=== PATIENT | male | born 1980 | race Caucasian/White ===

== ENCOUNTER 2017-10-20 08:59 | Emergency (ER) | payer OTHER ==
[2017-10-20 09:19] VITALS: BP 115/68
[2017-10-20] MEDS ORDERED: Lidocaine 2% VISCOUS* 15 ML UDC PO ONE (09:42)
--- NOTE | 2017-10-20 09:58 | UC ---
Jose Mark Angela, scribed for Meme Quintanilla MD on 10/20/17 at 0934 . Throat Pain/Nasal Los HPI - HPI Summary HPI Summary: This pt is a 36 y/o male presenting to [facility] c/o sore throat x3 days. Pt additionally c/o subjective a fever, chills, and nasal congestion. He has taken Tylenol PM, acetaminophen, oxycodone with some relief. Pt has gargled salt water , drank a lot of tea, used chloraseptic. He denies nausea, vomiting, rash, sinus pain, ear ache. Pt has had sick contacts with similar, not as sever He states he had a persistent cough a few weeks ago, that has now resolved after abx and MDI. He was on antibiotics for this and had albuterol treatment, with relief. no rashes. no cp. No sob. Has not gotten the flu vaccine NKDA. - History of Current Complaint Chief Complaint: UCRespiratory Stated Complaint: SORE THROAT Time Seen by Provider: 10/20/17 09:18 Hx Obtained From: Patient Onset/Duration: Lasting Days, Still Present Pain Intensity: 8 Pain Scale Used: 0-10 Numeric Cough: None - POS: nasal congestion. NEG: nausea, rash, sinus pain, ear ache. Associated Signs & Symptoms: Positive: Fever - subjective, Other - POS:. Negative: Vomiting, Rash - Allergies/Home Medications Allergies/Adverse Reactions: Allergies Allergy/AdvReac Type Severity Reaction Status Date / Time No Known Allergies Allergy Verified 10/20/17 09:19 Home Medications: Home Medications Acetaminophen [Tylenol] 10/20/17 [History] Ibuprofen [Ibuprofen 200 MG] 10/20/17 [History] Oxycodone W/ Acetaminophen [Endocet 5-325 mg] 10/20/17 [History] PMH/Surg Hx/FS Hx/Imm Hx - Additional Past Medical History Additional PMH: PMHx: shingles Previously Healthy: Yes Other Endocrine History: DENIES: diabetes Other Cardiovascular History: DENIES: HTN - Surgical History Surgical History: Yes Surgery Procedure, Year, and Place: anal fissure surgery, oral surgery - Family History Known Family History: Positive: Hypertension - father, Other - both parents are [place] survivors. - Social History Occupation: Employed Full-time Lives: With Family Alcohol Use: Occasionally Substance Use Type: None Smoking Status (MU): Never Smoked Tobacco Review of Systems Constitutional: Fever, Chills Skin: Negative Eyes: Negative ENT: Sore Throat, Sinus Congestion, Other - + PND Respiratory: Negative Cardiovascular: Negative Gastrointestinal: Negative Genitourinary: Negative Motor: Negative Neurovascular: Negative Musculoskeletal: Negative Neurological: Negative Psychological: Negative Is Patient Immunocompromised?: No All Other Systems Reviewed And Are Negative: Yes Physical Exam Triage Information Reviewed: Yes Appearance: Well-Appearing, Well-Nourished, Other: - painful swallowing Vital Signs: Initial Vital Signs Temp 98.5 F 10/20/17 09:06 Pulse 70 10/20/17 09:06 Resp 16 10/20/17 09:06 BP 115/68 10/20/17 09:06 Pulse Ox 98 10/20/17 09:06 Vital Signs Reviewed: Yes Eye Exam: Normal Eyes: Positive: Conjunctiva Clear ENT Exam: Normal ENT: Positive: Normal ENT inspection, Hearing grossly normal, Pharyngeal erythema, Nasal congestion, Nasal drainage, Tonsillar swelling, Tonsillar exudate - R>L, Sinus tenderness - max R>L, Uvula midline, Other - + PND Dental Exam: Normal Neck exam: Normal Neck: Positive: Supple, Nontender. Negative: No Lymphadenopathy - cervical lymphadenopathy R>L Cardiovascular Exam: Normal Cardiovascular: Positive: RRR, No Murmur, Pulses Normal Abdominal Exam: Normal Abdomen Description: Positive: Nontender, No Organomegaly, Soft Bowel Sounds: Positive: Present Musculoskeletal Exam: Normal Neurological Exam: Normal Neurological: Positive: Alert Psychological Exam: Normal Skin Exam: Normal Re-Evaluation - Re-Evaluation First Eval Comment: pt declined lidocaine. will Rx Amox, flonse. hydrate. secretion precaution. return precautions. Pt comfortable and in agreement with plan Throat Pain/Nasal Course/Dx - Course Assessment/Plan: Pt with sore throat, PND and congestion x 5 days. + sick contact. On exam, + erythema, exudate, lymphadenopathy. Pt with neg strep. offered lidocaine, pt declined. Pt turbinates boggy with + sinus discomfort. secretion precaution. amox for sinus / throat. flonase. return precautions - Differential Dx/Diagnosis Provider Diagnoses: pharynigitis. sinuisitis Discharge - Discharge Plan Condition: Stable Disposition: HOME Prescriptions: Amoxicillin PO (*) [Amoxicillin 500 MG CAP*] 500 mg PO Q12H #20 cap Fluticasone NASAL SPRAY 50MCG* [Flonase NASAL SPRAY 50MCG*] 2 spray BOTH NARES DAILY #1 btl Patient Education Materials: Pharyngitis (ED) Referrals: Sheldon Thomas MD [Primary Care Provider] - Additional Instructions: - Stay well hydrated. Drink plenty of non-alcoholic, non-caffinated beverages. - Gargle with warm, salt water 2-3 times a day. okay to use throat lozengers and spray - Cold beverages may be soothing to your throat - popsicles, apple sauce, jello - After you have been on antibiotics for 2 days - change your toothbrush and your pillowcase. These infections are spread by secretions - do NOT share eating or drinking utensils - clean items you share with other people such as cell phones, computer mouse, TV remote, computer tablets, etc - Alternate ibuprofen (Advil, Motrin) 600mg and Tylenol every 3 hours for pain or fever. Take with food. Do NOT take for more than 4-5 days. - Call your doctor or return with questions or concerns The documentation as recorded by the Jose miranda Angela accurately reflects the service I personally performed and the decisions made by , Meme Quitnanilla MD.
== END 2017-10-20 10:08 | disposition home or self-care (01) ==
LOC: UCEAST 08:59
DX: J02.9 Acute pharyngitis, unspecified (principal); J32.9 Chronic sinusitis, unspecified
CPT/HCPCS: 87651; 99201; G0463